=== PATIENT | female | born 1985 | race Caucasian/White ===

== ENCOUNTER 2018-06-07 07:36 | Emergency (ER) | payer BC ==
--- OUTSIDE RECORDS SUMMARY | 2018-06-07 07:46 | XMS REPORT ---
:[address] [facility] O[facility] Address [address] [place] [address] Care Team Providers Name Role Phone Dave Constantino Unavailable Unavailable PROBLEMS Type Condition ICD9-CM Code KFP48-EL Code Onset Condition SNOMED Code Dates Status Problem Acetonuria R82.4 Active 60455085 Problem Anal spasm K59.4 Active 47804899 Problem Lower abdominal R10.30 Active 01754041 pain, unspecified Problem Tobacco abuse Z71.6 Active [id number] counseling Problem Family history Z80.3 Active [id number] of malignant neoplasm of breast ALLERGIES No Information ENCOUNTERS Encounter Location Date Diagnosis [address] Jun, [address] [place] [id number] [facility] Apr, Lower abdominal pain , OBGYN [facility], unspecified R10.30 [place] [id number] [facility] 103 Apr, OBGYN [place] [id number] [address] Apr, Lower abdominal pain, OBGY [address] [place], unspecified R10.30 ; [place] [id number] Acetonuria R82.4 and Anal spasm K59.[address] Mar, OBGYN [address] [place], [place] [id number] [facility] 103 Jan, OBGYN [place] [id number] [facility] Dec, OBGYN [facility], [place] [id number] [place] [facility] [address] [place] [address] Dec, Lower abdominal pain, OBGYN Road [address] [place], unspecified R10.30 ; [place] [id number] Acetonuria R82.4 and Anal spasm K59.4 [facility] 103 Nov, Lower abdominal pain , OBGYN [facility], unspecified R10.30 and [place] [id number] Acetonuria R82.4 [facility] 103 Nov, Lower abdominal pain , OBGYN [facility], unspecified R10.30 [place] [id number] [place] [facility] [address] [facility] Oct, Lower abdominal pain, OBGYN Road [address] [place], unspecified R10.30 ; [place] [id number] Tobacco abuse counseling Z71.6 ; Encounter for contraceptive management, unspecified Z30.9 and Family history of malignant neoplasm of breast Z80.3 [facility] 103 May, 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 103 May, [facility] D[facility] 622.11 and [place] [id number] Vulvovaginitis due to Renetta 112.1 [facility] 103 Nov, CERVICAL DYSPLASIA, MILD OBN [facility], (MARJAN I) 622.11 [place] [id number] [facility] 103 16 Nov, 2006 CERVICAL (HPV) DNA POS [facility], 795.05 ; [place] [id number] cervix 622.2 and Mucous polyp of cervix 622.7 IMMUNIZATIONS No Known Immunizations SOCIAL HISTORY Never Assessed REASON FOR REFERRAL FUNCTIONAL STATUS PLAN OF CARE VITAL SIGNS MEDICATIONS Unknown Medications PROCEDURES No Known procedures RESULTS No Results REASON FOR VISIT Covered * Pt cost $1050 * Auth# [id number] Insurance Providers [facility] Member Patient Patient Patient Patient Patient Subscriber Subscriber Subscriber Group Insurance Plan Plan Plan Plan ID Relationship Address Phone Name Date of ID Name Date of No Type Insurance Insurance Insurance Coverage to Subscriber Address Phone Name Dates Blue Cross [phone] Blue Cross self [place] [id number] Blue [id number] 89 Blue Balich 0 0 Shield Y [facility] [address] Blue Cross [address] Blue Cross L[place] [id number] PPO [id number] PPO Balich 0 [facility] [address] [employer] [phone] [employer] Lola [id number] Blue [id number] 89 Blue Balich 9 Cross/Blue [place] Cross/Blue Shield [id number] Shield MEDICAL (GENERAL) HISTORY Type Description Date Medical History none Surgical History Childbirth x2 Hospitalization History X2
[2018-06-07 07:50] VITALS: BP 121/69
--- NOTE | 2018-06-07 08:17 | UC ---
Skin Complaint HPI - HPI Summary HPI Summary: Patient has 2 insect bites on the right arm. the red area has increased in size. itchy, swollen, has taken benadryl - History of Current Complaint Chief Complaint: UCSkin Time Seen by Provider: 06/07/18 08:01 Stated Complaint: RT ARM COMPLAINT Hx Obtained From: Patient Hx Last Menstrual Period: 05/08/18 ?: No Onset/Duration: Sudden Onset, Lasting Days Skin Exposure Onset/Duration: Days Ago Timing: Constant Onset Severity: Mild Current Severity: Mild Pain Intensity: 2 Character: Swelling, Pruritus, Redness, Raised, Painful - Allergy/Home Medications Allergies/Adverse Reactions: Allergies Allergy/AdvReac Type Severity Reaction Status Date / Time No Known Allergies Allergy Verified 06/07/18 07:46 Home Medications: Home Medications Control Pill 1 tab PO DAILY 06/07/18 [History Confirmed 06/07/18] Ibuprofen TAB* [Advil TAB*] 600 mg PO Q6H PRN 06/07/18 [History Confirmed ] PMH/Surg Hx/FS Hx/Imm Hx Previously Healthy: Yes - Surgical History Surgical History: Yes Surgery Procedure, Year, and Place: C-sections x2 - Family History Known Family History: Negative: Hypertension - Social History Alcohol Use: Occasionally Substance Use Type: Marijuana Substance Use Comment - Amount & Last Used: occasional Smoking Status (MU): Light Every Day Tobacco Smoker Type: Cigarettes Amount Used/How Often: socially Review of Systems All Other Systems Reviewed And Are Negative: Yes Constitutional: Positive: Negative Skin: Positive: Other - 2 bites Eyes: Positive: Negative ENT: Positive: Negative Respiratory: Positive: Negative Cardiovascular: Positive: Negative Gastrointestinal: Positive: Negative Genitourinary: Positive: Negative Motor: Positive: Negative Neurovascular: Positive: Negative Musculoskeletal: Positive: Negative Neurological: Positive: Negative Psychological: Positive: Negative Is Patient Immunocompromised?: No Physical Exam Triage Information Reviewed: Yes Appearance: Well-Appearing, Well-Nourished, Pain Distress Vital Signs: Initial Vital Signs Temp 98.1 F 06/07/18 07:47 Pulse 89 06/07/18 07:47 Resp 15 06/07/18 07:47 BP 121/69 06/07/18 07:47 Pulse Ox 98 06/07/18 07:47 Vital Signs Reviewed: Yes Eye Exam: Normal ENT Exam: Normal Dental Exam: Normal Neck exam: Normal Respiratory Exam: Normal Cardiovascular Exam: Normal Abdominal Exam: Normal Bowel Sounds: Positive: Present Musculoskeletal Exam: Normal Neurological Exam: Normal Psychological Exam: Normal Skin: Positive: Other - 2 insect bites, with large erythemic areas, warm to touch, slightly indurated, Course/Dx - Course Course Of Treatment: hx obtained, exam performed, meds reviewed, treaed for cellulitis from the bug bite - Differential Diagnoses - Skin Complaint Differential Diagnoses: Abscess, Cellulitis, Contact Dermatitis, Urticaria - Diagnoses Provider Diagnosis: Cellulitis of arm, right Discharge - Sign-Out/Discharge Documenting (check all that apply): Patient Departure All imaging exams completed and their final reports reviewed: No Studies - Discharge Plan Condition: Stable Disposition: HOME Prescriptions: Cephalexin CAP* [Keflex CAP*] 500 mg PO TID #21 cap Patient Education Materials: Cellulitis (ED) Referrals: No Primary Care Phys,NOPCP [Primary Care Provider] - Additional Instructions: 1. take the medication as prescribed. 2. Follow up if the red area is getting lager 3. Warm compresses to the area multiple times a day - Billing Disposition and Condition Condition: STABLE Disposition: Home - Attestation Statements Provider Attestation: I was available for consult. This patient was seen by the NIA. The patient was not presented to, seen by, or examined by me. EK
== END 2018-06-07 08:22 | disposition home or self-care (01) ==
LOC: UCCORT 07:36
DX: S40.861A Insect bite (nonvenomous) of right upper arm, initial encounter (principal); L03.113 Cellulitis of right upper limb; F17.210 Nicotine dependence, cigarettes, uncomplicated; W57.XXXA Bitten or stung by nonvenomous insect and other nonvenomous arthropods, initial encounter; Y92.9 Unspecified place or not applicable
CPT/HCPCS: 99212; G0463

== ENCOUNTER 2018-08-29 08:01 | Emergency (ER) | payer BC ==
[2018-08-29 08:19] VITALS: BP 124/77
--- NOTE | 2018-08-29 08:28 | UC ---
Throat Pain/Nasal Ashish HPI - HPI Summary HPI Summary: 32-year-old woman comes in with a chief complaint of sore throat and upper respiratory tract infection symptoms for 3 days. The sore throats it worse when she first wakes up. It hurts to swallow. If she takes ibuprofen that decreases the pain. But in the evening she's been starting to feel worse each evening. Minimal rhinorrhea. No chest congestion or shortness of breath. No recent fevers. - History of Current Complaint Chief Complaint: UCGeneralIllness Stated Complaint: SORE THEOAT Time Seen by Provider: 08/29/18 08:19 Hx Last Menstrual Period: last week Pain Intensity: 6 - Allergies/Home Medications Allergies/Adverse Reactions: Allergies Allergy/AdvReac Type Severity Reaction Status Date / Time No Known Allergies Allergy Verified 08/29/18 08:16 Home Medications: Home Medications Mini-Pill Control 1 dose PO DAILY 08/29/18 [History Confirmed 08/29/18] PMH/Surg Hx/FS Hx/Imm Hx Previously Healthy: Yes - Surgical History Surgical History: Yes Surgery Procedure, Year, and Place: C-sections x2 - Family History Known Family History: Negative: Hypertension - Social History Alcohol Use: Weekly Substance Use Type: Marijuana Substance Use Comment - Amount & Last Used: occasional Smoking Status (MU): Light Every Day Tobacco Smoker Type: Cigarettes Amount Used/How Often: socially Review of Systems All Other Systems Reviewed And Are Negative: Yes Constitutional: Positive: Negative Skin: Positive: Negative Eyes: Positive: Negative ENT: Positive: Sore Throat, Nasal Discharge, Sinus Congestion Respiratory: Positive: Negative Cardiovascular: Positive: Negative Gastrointestinal: Positive: Negative Motor: Positive: Negative Neurovascular: Positive: Negative Musculoskeletal: Positive: Negative Neurological: Positive: Negative Psychological: Positive: Negative Is Patient Immunocompromised?: No Physical Exam Triage Information Reviewed: Yes Appearance: Well-Appearing, No Pain Distress, Well-Nourished Vital Signs: Initial Vital Signs Temp 98.3 F 08/29/18 08:11 Pulse 78 08/29/18 08:11 Resp 16 08/29/18 08:11 BP 124/77 08/29/18 08:11 Pulse Ox 97 08/29/18 08:11 Vital Signs Reviewed: Yes Eye Exam: Normal Eyes: Positive: Conjunctiva Clear ENT: Positive: Pharyngeal erythema, Nasal congestion, Nasal drainage, TMs normal , Uvula midline. Negative: Tonsillar swelling, Tonsillar exudate Neck exam: Normal Neck: Positive: Supple Respiratory: Positive: Lungs clear, Normal breath sounds, No respiratory distress Cardiovascular: Positive: RRR Musculoskeletal Exam: Normal Musculoskeletal: Positive: Strength Intact, ROM Intact Neurological Exam: Normal Neurological: Positive: Alert, Muscle Tone Normal Psychological Exam: Normal Psychological: Positive: Age Appropriate Behavior Skin Exam: Normal Throat Pain/Nasal Course/Dx - Differential Dx/Diagnosis Provider Diagnosis: Strep pharyngitis Discharge - Sign-Out/Discharge Documenting (check all that apply): Patient Departure All imaging exams completed and their final reports reviewed: No Studies - Discharge Plan Condition: Stable Disposition: HOME Prescriptions: Amoxicillin PO (*) [Amoxicillin 875 MG (*)] 875 mg PO BID #20 tab Patient Education Materials: Strep Throat (ED) Referrals: [facility] [Outside] Additional Instructions: FOLLOW UP WITH YOUR DOCTOR IF NOT COMPLETELY IMPROVED. GET REEVALUATED SOONER IF YOUR CONDITION WORSENS OR ANY QUESTIONS OR CONCERNS. - Billing Disposition and Condition Condition: STABLE Disposition: Home
== END 2018-08-29 08:41 | disposition home or self-care (01) ==
LOC: UCEAST 08:01
DX: J02.0 Streptococcal pharyngitis (principal); F17.210 Nicotine dependence, cigarettes, uncomplicated
CPT/HCPCS: 87651; 99212; G0463

== ENCOUNTER 2018-11-17 12:44 | Emergency (ER) | payer BC ==
[2018-11-17 12:56] VITALS: BP 129/80
--- NOTE | 2018-11-17 12:57 | UC ---
Abdominal Pain Female HPI - HPI Summary HPI Summary: 32 yo female presents with lump to left side. She tells me that she noticed this months ago when she was scratching the area - felt a small lump and swelling just inferior to her left 12th rib. Mild tenderness with palpation. Has not changed in size or shape since noticing it. She does not have a PCP. Denies recent illness, injury to the area, abdominal pain, n/v, SOB, chest pain , cough. - History of Current Complaint Chief Complaint: UCAbdominalPain Stated Complaint: LT SIDE PAIN/SWELLEN Time Seen by Provider: 11/17/18 12:57 Hx Obtained From: Patient Hx Last Menstrual Period: last week Onset/Duration: Sudden Onset Severity Initially: Moderate Severity Currently: Moderate Pain Intensity: 5 Pain Scale Used: 0-10 Numeric Allergies/Adverse Reactions: Allergies Allergy/AdvReac Type Severity Reaction Status Date / Time No Known Allergies Allergy Verified 11/17/18 12:55 PMH/Surg Hx/FS Hx/Imm Hx - Additional Past Medical History Additional PMH: None - Surgical History Surgical History: Yes Surgery Procedure, Year, and Place: C-sections x2 - Family History Known Family History: Negative: Hypertension - Social History Occupation: Employed Full-time Lives: With Family Alcohol Use: Weekly Substance Use Type: Marijuana Substance Use Comment - Amount & Last Used: occasional Smoking Status (MU): Current Some Day Smoker Type: Cigarettes Amount Used/How Often: socially Review of Systems All Other Systems Reviewed And Are Negative: Yes Constitutional: Positive: Negative Skin: Positive: Other - ?lump LUQ Respiratory: Positive: Negative Cardiovascular: Positive: Negative Gastrointestinal: Positive: Negative Neurovascular: Positive: Negative Musculoskeletal: Positive: Negative Neurological: Positive: Negative Psychological: Positive: Negative Physical Exam - Summary Physical Exam Summary: GENERAL: NAD. WDWN. No pain distress. SKIN: No rashes, sores, lesions, or open wounds. NECK: Supple. Nontender. No lymphadenopathy. CHEST: CTAB. No r/r/w. No accessory muscle use. Breathing comfortably and in no distress. CV: RRR. Without m/r/g. Pulses intact. Cap refill <2seconds ABDOMEN: Just inferior to left 12th rib along anterior midaxillary line there is a possible 2.0cm oval shaped nodule that is difficult to appreciate. Very mild TTP. Remainder of abdomen is Soft. NTTP. No distention or guarding. No organomegaly. No CVA tenderness. Bowel sounds present NEURO: Alert. PSYCH: Age appropriate behavior. Triage Information Reviewed: Yes Vital Signs: Initial Vital Signs Temp 98.6 F 11/17/18 12:51 Pulse 93 11/17/18 12:51 Resp 18 11/17/18 12:51 BP 129/80 11/17/18 12:51 Pulse Ox 98 11/17/18 12:51 Vital Signs Reviewed: Yes Abd Pain Female Course/Dx - Course Course Of Treatment: I suspect this is muscle/connective tissue or perhaps a lipoma. Given that pt is concerned about the area, will order for an ultrasound today to further evaluate. US: Indication: Soft tissue nodule left upper quadrant pain. Real-time sonography of the soft tissues of the left upper quadrant was performed. There is a hypoechoic solid nodule measuring 2.7 x 1.0 x 2.1 cm. This is in the region of the palpable nodule. IMPRESSION: Solid nodule in the upper left flank measuring 2.7 x 1.0 x 2.1 cm. I spoke with Dr. Parish of radiology who read the ultrasound and he says the hypoechoic nodule could be consistent with a lipoma, but cannot be certain. The margins are well defined. He agreed that a repeat US in 6 months to assess the stability would be reasonable. Discussed results with pt. Will have her f/u with a PCP for a recheck and repeat ultrasound within the next 6 months. - Differential Dx/Diagnosis Provider Diagnosis: Soft tissue mass Discharge - Sign-Out/Discharge Documenting (check all that apply): Patient Departure All imaging exams completed and their final reports reviewed: Yes - Discharge Plan Condition: Stable Disposition: HOME Patient Education Materials: Lipoma (ED), Soft Tissue Mass (ED) Referrals: No Primary Care Phys,NOPCP [Primary Care Provider] - [facility] [Outside] - As Soon As Possible Additional Instructions: If you develop a fever, shortness of breath, chest pain, new or worsening symptoms - please call your PCP or go to the ED immediately. 1) The nodule in your left side appears most consistent with a lipoma and does not seem concerning, however I recommend a repeat ultrasound in 3-6 months to check for any changes to the area. 2) Please follow up with a primary care doctor for further evaluation - Billing Disposition and Condition Condition: STABLE Disposition: Home
== END 2018-11-17 14:10 | disposition home or self-care (01) ==
LOC: UCEAST 12:44
DX: R19.02 Left upper quadrant abdominal swelling, mass and lump (principal); Z72.0 Tobacco use
CPT/HCPCS: 76705; 99211; G0463